=== PATIENT | male | born 1955 | race Caucasian/White ===

== ENCOUNTER 2018-01-04 09:48 | Emergency (ER) | payer BC, OTHER ==
[~2018-01-04] VITALS: Ht 188 cm; Wt 94.8 kg
[2018-01-04 09:48] VITALS: BP 124/81
== END 2018-01-04 10:27 | disposition home or self-care (01) ==
LOC: ER 09:50
DX: T18.0XXA Foreign body in mouth, initial encounter (principal); Z96.643 Presence of artificial hip joint, bilateral; Z60.2 Problems related to living alone; X58.XXXA Exposure to other specified factors, initial encounter; Y93.89 Activity, other specified; Y92.89 Other specified places as the place of occurrence of the external cause; Y99.8 Other external cause status
CPT/HCPCS: 99281; A4606; Z7502; Z7610